=== PATIENT | female | born 1965 | race Hispanic/Latino ===

== ENCOUNTER → 2020-10-24 | Outpatient (CLI) | payer MEDICAID ==
[~2020-10-24] VITALS: Ht 12.7 cm; Wt 115.2 kg
== END | disposition home or self-care (01) ==
LOC: DTH 11:46
PROVIDERS: ATTEND Surgery
DX: E66.01 Morbid (severe) obesity due to excess calories (principal); I10 Essential (primary) hypertension; E11.9 Type 2 diabetes mellitus without complications; E78.00 Pure hypercholesterolemia, unspecified
CPT/HCPCS: 97802

== ENCOUNTER → 2020-11-22 | Outpatient (CLI) | payer MEDICAID | END | disposition home or self-care (01) | LOC: DTH 10:55 | PROVIDERS: ATTEND Surgery | DX: E66.01 Morbid (severe) obesity due to excess calories (principal); I10 Essential (primary) hypertension; E11.9 Type 2 diabetes mellitus without complications; E78.00 Pure hypercholesterolemia, unspecified | CPT/HCPCS: 97803 ==

== ENCOUNTER 2020-12-31 06:23 | Day surgery (SDC) | payer MEDICARE ==
[~2020-12-31] VITALS: Ht 162.6 cm; Wt 118.4 kg
[2020-12-31] VITALS (7 sets, daily range): BP systolic 78–132; BP diastolic 32–82
[~2020-12-31 06:23] MED LIST: ASPI-1197 PO; ATOR20TA65 PO; BUPR450T3 PO; COMB5OS OU; EMPA10TA PO; LIRA0.6P SQ; LISI20TA24 PO; METF-446 PO; METOPROLOL; PRAZ2CAP2 PO; RESPIRADONE PO; TRAZ150T79 PO; VITAD50000 PO
[2020-12-31] MEDS ORDERED: NACL 0.9% 1000ML 1,000 ML IV ONE ×2 (07:09→09:18)
[2020-12-31] MEDS ORDERED: LIDOCAINE PF 100MG/5ML (2%) SYRINGE 5ML ONE (08:24)
[2020-12-31] MEDS ORDERED: PROPOFOL 10 MG/ML 20ML VIAL IV ONE (08:24)
[2020-12-31] MEDS ORDERED: GLYCOPYRROLATE 1 MG/5 ML SYRINGE ONE (08:25)
== END 2020-12-31 09:30 | disposition home or self-care (01) ==
LOC: DAH 06:23 → ENDO 06:23
PROVIDERS: ATTEND Surgery
DX: K21.9 Gastro-esophageal reflux disease without esophagitis (principal); Z20.822 Contact with and (suspected) exposure to COVID-19; I10 Essential (primary) hypertension; E78.5 Hyperlipidemia, unspecified; E11.9 Type 2 diabetes mellitus without complications; F32.9 Major depressive disorder, single episode, unspecified; E66.01 Morbid (severe) obesity due to excess calories; Z90.49 Acquired absence of other specified parts of digestive tract; Z83.3 Family history of diabetes mellitus; Z82.49 Family history of ischemic heart disease and other diseases of the circulatory system; Z68.41 Body mass index [BMI] 40.0-44.9, adult; Z80.0 Family history of malignant neoplasm of digestive organs; Z87.891 Personal history of nicotine dependence; Z79.899 Other long term (current) drug therapy
CPT/HCPCS: 43235; 82948; 87635; A4215; A4221; A4222; A4223; A4606; A4620; A4663; C9803; J2001; J2704; J3490; J7030 ×2

== ENCOUNTER → 2021-01-21 | Outpatient (CLI) | payer MEDICARE ==
[2021-01-21 14:26] LABS: BASOPHILS % (AUTO) 0.7 % (0.0-5.0); EOSINOPHILS % (AUTO) 1.6 % (0.0-8.0); HEMATOCRIT 43.4 % (36-48); LYMPHOCYTES % (AUTO) 27.5 % (21.0-51.0); MEAN CORPUSCULAR HEMOGLOBIN 29.7 pg (27.0-33.0); MEAN CORPUSCULAR HGB CONC 33.4 g/dL (32.0-36.0); MEAN CORPUSCULAR VOLUME 88.8 fL (79-99); MONOCYTES % (AUTO) 9.3 % (3.0-13.0); NEUTROPHILS % (AUTO) 59.9 % (40.0-77.0); PLATELET COUNT (AUTO) 236 K/uL (130-400); RED BLOOD CELL COUNT(AUTO) 4.89 MIL/uL (4.00-5.50); RED CELL DISTRIBUTION WIDTH 15.4 % (11.0-15.5); WHITE BLOOD COUNT (AUTO) 10.9 K/uL (4.8-10.8)
[2021-01-21 14:36] LABS: CREATININE 0.8 mg/dL (0.5-1.5)
[2021-01-21 14:39] LABS: INR 1.02 (0.85-1.15); PROTHROMBIN TIME 11.1 SEC (9.6-11.6)
[2021-01-21 14:41] LABS: PARTIAL THROMBOPLASTIN TIME 26.3 SEC (26.3-35.5)
== END | disposition home or self-care (01) ==
LOC: EDSTATUS 09:00 → DAH 10:00
PROVIDERS: ATTEND Surgery
DX: K21.9 Gastro-esophageal reflux disease without esophagitis (principal); E11.9 Type 2 diabetes mellitus without complications; R94.31 Abnormal electrocardiogram [ECG] [EKG]; E78.5 Hyperlipidemia, unspecified
CPT/HCPCS: 36415; 71045; 80048; 85025; 85610; 85730; 86850; 86900; 86901; 87635; 93005

== ENCOUNTER 2021-04-01 08:00 | Inpatient (IN) | payer MEDICARE ==
[~2021-04-01] VITALS: Ht 160 cm; Wt 119.5 kg
[2021-04-01 09:38] LABS: BASOPHILS % (AUTO) 0.9 % (0.0-5.0); EOSINOPHILS % (AUTO) 1.6 % (0.0-8.0); HEMATOCRIT 47.3 % (36-48); LYMPHOCYTES % (AUTO) 23.6 % (21.0-51.0); MEAN CORPUSCULAR HEMOGLOBIN 30.4 pg (27.0-33.0); MEAN CORPUSCULAR HGB CONC 32.8 g/dL (32.0-36.0); MEAN CORPUSCULAR VOLUME 92.7 fL (79-99); MONOCYTES % (AUTO) 9.5 % (3.0-13.0); NEUTROPHILS % (AUTO) 63.6 % (40.0-77.0); PLATELET COUNT (AUTO) 276 K/uL (130-400); RED CELL DISTRIBUTION WIDTH 13.7 % (11.0-15.5); WHITE BLOOD COUNT (AUTO) 11.4 K/uL (4.8-10.8)
[2021-04-01 09:48] LABS: INR 0.99 (0.85-1.15); PROTHROMBIN TIME 10.8 SEC (9.6-11.6)
[2021-04-01 09:49] LABS: PARTIAL THROMBOPLASTIN TIME 25.9 SEC (26.3-35.5)
[2021-04-01 09:50] LABS: CREATININE 1.1 mg/dL (0.5-1.5); POTASSIUM 4.6 mmol/L (3.5-5.1)
[2021-04-05 10:17] VITALS: BP 101/62
[2021-04-05] MEDS: CEFAZOLIN SODIUM 1 GM VIAL IVP SCH (11:00)
[2021-04-06] MEDS: CEFAZOLIN SODIUM 1 GM VIAL IVP SCH (11:00)
[2021-04-08] VITALS (23 sets, daily range): BP systolic 118–142; BP diastolic 64–86
[2021-04-08] MEDS: CEFAZOLIN SODIUM 1 GM VIAL IVP SCH ×2 (09:30→11:33)
[2021-04-08] MEDS ORDERED: 0.9%NACL 1000ML 1,000 ML IV ONE (09:42)
[2021-04-08] MEDS ORDERED: PROPOFOL 10 MG/ML 20ML VIAL IV ONE (11:17)
[2021-04-08] MEDS ORDERED: FENTANYL CITRATE PF 50 MCG/1 ML 2ML VIAL ONE (11:17)
[2021-04-08] MEDS ORDERED: ROCURONIUM 10MG/1ML SYR 10 MG/ML ML ONE (11:17)
[2021-04-08] MEDS ORDERED: LIDOCAINE PF 100MG/5ML (2%) SYRINGE 5ML ONE (11:17)
[2021-04-08] MEDS ORDERED: SUCCINYLCHOLINE 200MG/10ML SYR ONE (11:17)
[2021-04-08] MEDS ORDERED: MIDAZOLAM HCL 1 MG/ML 2ML VIAL ONE (11:25)
[2021-04-08] MEDS ORDERED: PHENYLEPHRINE HCL 10 MG/ML 1ML VIAL IV ONE (11:42)
[2021-04-08] MEDS ORDERED: 0.9%NACL 10ML VIAL ONE (11:42)
[2021-04-08] MEDS ORDERED: GLYCOPYRROLATE 1 MG/5 ML SYRINGE ONE (11:55)
[2021-04-08] MEDS ORDERED: EPHEDRINE SULFATE 50 MG/ML AMPULE ONE (11:59)
[2021-04-08] MEDS ORDERED: BUPIVACAINE/PF 0.5% 30ML VIAL ONE (12:06)
[2021-04-08] MEDS ORDERED: NEOSTIGMINE 5MG/5ML SYR IV ONE (13:35)
[2021-04-08] MEDS ORDERED: KETOROLAC 30MG VIAL (30MG/ML) ONE (13:37)
[2021-04-08] MEDS ORDERED: ONDANSETRON 4MG INJ ONE (13:37)
[2021-04-08] MEDS ORDERED: MEPERIDINE-PF 25 MG/ML SYG ONE ×2 (13:51→14:27)
[2021-04-08] MEDS ORDERED: MORPHINE 4 MG SYG IVP PRN (14:30)
[2021-04-08] MEDS: LACTATED RINGERS 1000ML 1,000 ML IV SCH (15:30)
[2021-04-08] MEDS: CLINDAMYCIN IVPB 600MG/50ML 50 ML IV SCH ×2 (15:30→22:37)
[2021-04-08] MEDS: KETOROLAC 30MG VIAL (30MG/ML) IM PRN ×2 (15:32→21:33)
[2021-04-08] MEDS: FAMOTIDINE 20MG VIAL IV SCH (21:17)
[2021-04-08] MEDS: ENOXAPARIN SODIUM 30 MG/0.3 ML SQ SCH (21:27)
[2021-04-09] MEDS: LACTATED RINGERS 1000ML 1,000 ML IV SCH ×3 (00:21→14:15)
[2021-04-09 00:28] VITALS: BP 123/69
[2021-04-09 04:19] LABS: BASOPHILS % (AUTO) 0.4 % (0.0-5.0); EOSINOPHILS % (AUTO) 0.1 % (0.0-8.0); HEMATOCRIT 42.7 % (36-48); LYMPHOCYTES % (AUTO) 14.3 % (21.0-51.0); MEAN CORPUSCULAR HEMOGLOBIN 29.6 pg (27.0-33.0); MEAN CORPUSCULAR HGB CONC 31.6 g/dL (32.0-36.0); MEAN CORPUSCULAR VOLUME 93.6 fL (79-99); MONOCYTES % (AUTO) 11.4 % (3.0-13.0); NEUTROPHILS % (AUTO) 73.3 % (40.0-77.0); PLATELET COUNT (AUTO) 215 K/uL (130-400); RED BLOOD CELL COUNT(AUTO) 4.56 MIL/uL (4.00-5.50); RED CELL DISTRIBUTION WIDTH 13.5 % (11.0-15.5); WHITE BLOOD COUNT (AUTO) 14.6 K/uL (4.8-10.8)
[2021-04-09 04:25] LABS: CREATININE 0.9 mg/dL (0.5-1.5); POTASSIUM 4.1 mmol/L (3.5-5.1)
[2021-04-09 04:28] VITALS: BP 150/81
[2021-04-09] MEDS: ONDANSETRON 4MG INJ IVP PRN ×2 (05:55→08:20)
[2021-04-09 08:00] VITALS: BP 142/84
[2021-04-09] MEDS: CEFAZOLIN SODIUM 1 GM VIAL IVP SCH (08:17)
[2021-04-09] MEDS: FAMOTIDINE 20MG VIAL IV SCH (08:20)
[2021-04-09] MEDS: ENOXAPARIN SODIUM 30 MG/0.3 ML SQ SCH (08:20)
[2021-04-09] MEDS: KETOROLAC 30MG VIAL (30MG/ML) IM PRN (08:21)
[2021-04-09 12:00] VITALS: BP 133/81
== END 2021-04-09 14:00 | disposition home or self-care (01) | DRG 621 ==
LOC: EDSTATUS 08:00 → DAHIP 04-08 08:55 → 4BH 04-08 14:27
PROVIDERS: ADMIT Surgery; ATTEND Surgery
PROC: 0D164ZA Bypass Stomach to Jejunum, Percutaneous Endoscopic Approach (ICD-10-PCS; principal; 2021-04-08 11:59)
PROC: 0DJ08ZZ Inspection of Upper Intestinal Tract, Via Natural or Artificial Opening Endoscopic (ICD-10-PCS; 2021-04-08 11:59)
DX: E66.01 Morbid (severe) obesity due to excess calories (principal); E11.9 Type 2 diabetes mellitus without complications; Z68.42 Body mass index [BMI] 45.0-49.9, adult; I10 Essential (primary) hypertension; E78.00 Pure hypercholesterolemia, unspecified; F32.9 Major depressive disorder, single episode, unspecified; K21.9 Gastro-esophageal reflux disease without esophagitis; E78.5 Hyperlipidemia, unspecified; Z90.49 Acquired absence of other specified parts of digestive tract; Z83.3 Family history of diabetes mellitus; Z83.79 Family history of other diseases of the digestive system; Z80.9 Family history of malignant neoplasm, unspecified; Z82.49 Family history of ischemic heart disease and other diseases of the circulatory system; Z20.822 Contact with and (suspected) exposure to COVID-19
CPT/HCPCS: 36415; 43235; 71045; 80048; 82948; 85025; 85610; 85730; 86850; 86900; 86901; 87635; 93005; G0378; J0330; J0690; J1650; J1885; J2001; J2175; J2250; J2270; J2370; J2405; J2704; J2710; J3010; J3490; J7030; J7120